=== PATIENT | male | born 1970 | race Caucasian/White ===

== ENCOUNTER 2016-04-24 07:32 | Outpatient (CLI) | payer BC ==
[~2016-04-24] VITALS: Ht 175.3 cm; Wt 95.5 kg
--- NOTE | ~2016-04-24 | HEMODYNAMI ---
PATIENT:SILVER CABRAL MEDICAL RECORD: [id number] : 68 LOCATION:DERIC ADMISSION DATE: 04/24/16 Generatedon:04/24/201610:52 Patient name: SILVER CABRAL Patient #: [id number] : 1970 Date of study: 04/24/2016 Page: Of Hemodynamic Procedure Report Patient Data Patient Demographics Procedure consent was obtained First Name: SILVER Gender: Male Last Name: MARIANNA : 1970 [facility] Initial: R Age: 45 year(s) Patient #: [id number] Race: Unknown SSN: [id number] Additional ID: [id number] Contact details [address]: [address] [place] [address] rd State: [place] City: [place] Zip code: [address] Admission Admission Data Admission Date: 04/24/2016 Admission Time: 7:32 Arrival Date: 04/24/2016 Arrival Time: 0:00 Admit Source: Other Height (in.): 69 BSA: 2.12 (m2) Height (cm.): 175.26 BMI: 31.45 (kg/m2) Weight (lbs.): 213 Weight (kg.): 96.62 Lab Results Lab Result Date: 04/24/2016 Lab Result Time: 0:00 Biochemistry Name Units Result Min Max BUN mg/dl 18 --(---*)-- 7 18 Creatinine mg/dl 1.1 --(--*-)-- 0.6 1.3 CBC Name Units Result Min Max Hemoglobin g/dl 15.1 --(-*--)-- 13.5 17.5 Procedure Procedure Types Cath Procedure Diagnostic Procedure C [facility] w/Coronaries Miscellaneous Procedures Moderate Sedation up to 15 minutes Procedure Description Procedure Date Procedure Date: 04/24/2016 Procedure Start Time: 10:36 Procedure End Time: 10:51 Procedure Staff Name Function Charly Jones MD Performing Physician Dylan Mccartney RT Director Data Management Pancho Stroud RN Nurse Colin Ordonez RT Scrub Oneida Cartwright RT Monitor Procedure Data Cath Procedure Fluoroscopy Diagnostic fluoroscopy Total fluoroscopy Time: 3.5 time: 3.5 min min Diagnostic fluoroscopy Total fluoroscopy dose: 186 dose: 186 mGy mGy Contrast Material Contrast Material Type Amount (ml) Isovue 300 55 Entry Location Entry Primary Successful Side Size Upsize Upsize Entry Closure Rodriguez ccessful Closure Location (Fr) 1 (Fr) 2 (Fr) Remarks Device Remarks Radial Right 6 Fr Mechanical TR band artery Short Compression Estimated blood loss: 10 ml Diagnostic catheters Device Type Used For End Catheter Placement Terumo 5Fr Jonn 110cm LV Angiography catheter Procedure Complications No complications Procedure Medications Medication Administration Route Dosage Oxygen NC 2 l/min Heparin Flush Bag added to field 2 bags (1000units/500ml NS) Fentanyl I.V. 100 mcg Versed I.V. 2 mg Radial Cocktail added to field 1 syringe (Verapomil 2mg/Nitro 400mcg/Heparin 1500units) Fentanyl I.V. 100 mcg Versed I.V. 2 mg Radial Cocktail I.A. 1 syringe (Verapomil 2mg/Nitro 400mcg/Heparin 1500units) 0.9% NaCl I.V. 100 ml/hr Hemodynamics Rest BSA: 2.12 (m2) HGB: 15.1 (g/dl) O2 Consumption: Estimated: 252.46 (ml/min) O2 Co nsumption indexed: Estimated:119.08 (ml/min/m) Heart Rate: 66 (bpm) Pressure Samples Time Site Value (mmHg) Purpose Heart Use Rate(bpm) 10:42 LV 73/10,15 Snapshot 48 10:42 LV 27/6,5 Snapshot 86 10:42 AO 101/78(87) Pullback 85 10:42 LV 112/17,22 Pullback 85 Gradients Valve Time Site 1 Site 2 Mean SEP/DFP Peak To Heart Use (mmHg) (sec/min) Peak Rate (mmHg) (bpm) Aortic 10:42 LV AO 9 18 11 85 112/17,22 101/78(87) Calculations Valve P-P Mean Valve Index Valve Source Name Gradient Area Flow (cm2) Aortic 11 9 11 9 Snapshots Pre Cath Intra NCS Post Cath Vital Signs Time Heart Resp SPO2 NIBP (mmHg) Rhythm Pain Sedation Rate (ipm) (%) Status Level (bpm) 10:28:39 65 14 98 135/85(114) NSR 0 (11) 10(A) , No pain 10:32:57 55 29 100 148/91(107) NSR 0 (11) 10(A) , No pain 10:37:15 89 18 85 125/91(121) NSR 0 (11) 9(A) , No pain 10:41:17 90 19 88 118/104(109) NSR 0 (11) 9(A) , No pain 10:45:20 65 18 94 121/108(118) NSR 0 (11) 9(A) , No pain 10:49:01 67 16 96 118/67(87) NSR 0 (11) 9(A) , No pain Medications Time Medication Route Dose Verified Delivered Reason Notes Effectiveness by by 10:32:56 Oxygen NC 2 l/min Pancho Deleon used for Maximus Stroud quill layer RN 10:33:25 Heparin Flush added 2 bags Pancho Deleon used for Bag to Maximus Stroud RN procedure (1000units/500ml field RN NS) 10:33:33 0.9% NaCl I.V. 100 Pancho Pancho Per ml/hr Maximus Stroud RN physician RN 10:33:34 Fentanyl I.V. 100 mcg Pancho Deleon for sedation Maximus Stroud RN RN 10:33:41 Versed I.V. 2 mg Pancho Pancho for sedation Maximus Stroud RN RN 10:36:47 Radial Cocktail added 1 Pancho Deleon used for (Verapomil to syringe Maximus Stroud RN procedure 2mg/Nitro field RN 400mcg/Heparin 1500units) 10:36:53 Fentanyl I.V. 100 mcg Pancho Deleon for sedation Maximus Stroud RN RN 10:36:59 Versed I.V. 2 mg Pancho Deleon for sedation Maximus Stroud RN RN 10:38:28 Radial Cocktail I.A. 1 Pancho Parks for (Verapomil syringe Maximus carvajal 2mg/Nitro RN 400mcg/Heparin 1500units) Procedure Log Time Note 10:00:07 Pancho Stroud RN sent for patient. Start room use. 10:11:10 Time tracking: Regular hours 10:11:13 Plan of Care:Hemodynamics will remain stable., Cardiac rhythm will remain stable., Comfort level will be maintained., Respiratory function will remain adequate., Patient/ family verbilizes understanding of procedure., Procedure tolerated without complication., Recovers from procedure without complications.. 10:17:33 Arrival Date: 04/24/2016 12:00:00 AM 10:17:35 Admit Source: Other 10:17:42 Patient Height : 175.26 inches 10:17:49 Patient Weight : 96.62 lbs 10:18:17 Procedure type changed to Cath procedure, Diagnostic procedure, LHC, LHC w/Coronaries, Miscellaneous Procedures, Moderate Sedation up to 15 minutes 10:18:21 Diagnostic Cath Status : Elective 10:18:43 Patient received from Outpatients to [facility] 3 Alert and oriented. Tansferred to table in Supine position. 10:18:45 Warm blankets applied, and emilio hugger turned on for patient comfort. 10:18:46 Correct patient and procedure confirmed by team. 10:18:48 Signed procedure consent form obtained from patient. 10:18:58 H&P Date Dictated: 04/16/2016 Within 30 days and on chart., H&P Addendum completed by physician on day of procedure. (MUST COMPLETE FOR ALL OUTPATIENTS). 10:19:02 Pre-procedure instructions explained to patient. 10:19:04 Family in waiting room. 10:19:06 Patient NPO since Midnight. 10:19:33 Is the patient allergic to Iodine/contrast media? No. 10:19:36 Is patient on blood thinner?Yes 10:19:39 ACC The patient was administered the following blood thiners within the last 24 hours: ACCPlavix 10:27:26 Vital chart was started 10:27:39 Patient diabetic? No. 10:27:45 Snore? Yes 10:27:46 Sleep apnea? No 10:27:47 Deviated septum? No 10:27:49 Opens mouth fully? Yes 10:27:50 Sticks out tongue? Yes 10:28:06 IV patent on arrival in left hand with 0.9% NaCl at KVO. 10:28:15 Lab results completed and on chart. 10:28:19 Right Radial & Right Groin area was prepped with chlora-prep and draped in sterile fashion 10::21 Alarms reviewed by R. N. 10:28:21 Sharps counted by scrub and verified by R.N. 10::27 ECG and BP/O2 sat monitors applied to patient. 10:: Baseline sample Acquired. 10:: Rhythm: sinus rhythm 10:: Full Disclosure recording started 10:: Physician paged 10::42 Physician arrived 10::43 --------ALL STOP TIME OUT------ 10::44 Final Timeout: patient, procedure, and site verified with staff and physician. All members of the team are in agreement. 10::46 Right Radial & Right Groin site verified by team. 10::50 Physical assessment completed. ASA score P 2 - A patient with mild systemic disease as per Charly Jones MD. 10:28:54 Sedation plan: IV Moderate Sedation Versed, Fentanyl 10:30:03 Use device set Radial Dx 10:30:05 Acist Syringe opened to sterile field. 10:30:05 Medline Cath Pack opened to sterile field. 10:30:06 Bag Decanter opened to sterile field. 10:30:06 Terumo 6Fr Slender Glidesheath opened to sterile field. 10:30:06 St Amaury 260cm J .035 wire opened to sterile field. 10:30:07 Acist Hand Control opened to sterile field. 10:30:07 Acist Manifold opened to sterile field. 10:30:09 Tegaderm 4 x 4 opened to sterile field. 10:31:09 Lab Result : BUN 18 mg/dl 10:31:09 Lab Result : Hemoglobin 15.1 g/dl 10:31:09 Lab Result : Creatinine 1.1 mg/dl 10:32:56 Oxygen 2 l/min NC was given by Pancho Stroud RN; used for procedure; 10:33:25 Heparin Flush Bag (1000units/500ml NS) 2 bags added to field was given by Pancho Stroud RN; used for procedure; 10:33:33 0.9% NaCl 100 ml/hr I.V. was given by Pancho Stroud RN; Per physician; :33:34 Fentanyl 100 mcg I.V. was given by Pancho Stroud RN; for sedation; ::41 Versed 2 mg I.V. was given by Pancho Stroud RN; for sedation; 10:36:23 Procedure started. 10:36:28 Local anesthetic to right radial artery with Lidocaine 2% by Charly Jones MD.INITIAL ACCESS ONLY 10:36:47 Radial Cocktail (Verapomil 2mg/Nitro 400mcg/Heparin 1500units) 1 syringe added to field was given by Pancho Stroud RN; used for procedure; 10:36:53 Fentanyl 100 mcg I.V. was given by Pancho Stroud RN; for sedation; 10:36:59 Versed 2 mg I.V. was given by Pancho Stroud RN; for sedation; 10:37:00 Zero performed for pressure channel P1 10:37:18 A 6 Fr Short sheath was inserted into the Right Radial artery 10:38:28 Radial Cocktail (Verapomil 2mg/Nitro 400mcg/Heparin 1500units) 1 syringe I.A. was given by Charly Jones MD; for vasodilation; 10:40:34 A Terumo 5Fr Jonn 110cm catheter was advanced over the wire and used for LV Angiography. 10:42:56 RCA angiography performed. 10:43:51 Catheter removed. 10:43:53 Medtronic Launcher 5Fr EBU 3.5 guide catheter opened to sterile field. 10:44:17 RCA angiography performed. 10:46:09 Catheter removed. 10:46:37 Terumo TR Band Large opened to sterile field. 10:48:53 Sheath removed intact; hemostasis achieved with Mechanical Compression to the Right Radial artery. 10:48:56 Procedure ended.(Physican Out) 10:49:11 Fluoroscopy time 03.50 minutes. 10:49:16 Flurop Dose total: 186 10:49:16 Fluoroscopy dose: 186 mGy 10:49:20 Contrast amount:Isovue 300 55ml. 10:49:22 Sharps counted by scrub and verified by R.N. 10:49:29 TR band inflated with 10cc of air. 10:49:33 Post Procedure Pulses reassessed and unchanged 10:49:43 Post procedure rhythm: unchanged. 10:49:46 Estimated blood loss: 10 ml 10:50:49 Post procedure instruction explained to patient.Patient verbalizes understanding. 10:51:00 Procedure and supply charges have been captured, reviewed, submitted and are correct. 10:51:26 Procedure Complication : No complications 10:51:29 Vital chart was stopped 10:51:34 See physician's report for complete and final results. 10:51:36 Report given to Outpatients. 10:51:40 Patient transfered to Outpatients with Stretcher. 10:51:42 Procedure ended. 10:51:42 Full Disclosure recording stopped 10:51:45 End room use (Document Last) Device Usage Item Name Manufacture Quantity Catalog Hospital Part Current Minimal Lot# / Number Charge Number Stock Stock Serial# Code Acist Acist 1 47252 242365 508599 455301 20 Syringe Medical [employer] Inc Medline Cardinal 1 [id number] 910204 73843 562798 5 Cath Pack Health Bag Microtek 1 [id number] 56096 243303 5 DecThe [employer] Terumo 6Fr Terumo 1 [id number] 147554 679742 743687 [address] St Amaury 1 462751 995795 409964 571219 30 260cm J .035 wire Acist Hand Acist 1 89357 421616 337810 018778 5 Control Medical Systems Inc Acist Acist 1 92664 054267 629657 319193 5 Manifold Medical Systems Inc Tegaderm 4 3M 1 [id number] 974125 843625 446440 5 x 4 Terumo 5Fr Terumo 1 37-8281 241614 481106 801468 5 Jonn 110cm catheter Medtronic Medtronic 1 [id number] 808564 803647 495206 1 Launcher 5Fr EBU 3.5 guide catheter Terumo TR Terumo 1 [id number] 803067 492213 40 Band Large Signature Audit [place] Time Signature Unsigned Intra-Procedure 04/24/2016 Oneida Cartwright 10:52:15 AM RT(R) Signatures Monitor : Oneida Cartwright Signature : RT Date : Time : [id number] [place] [address]
[2016-04-24] MEDS ORDERED: LIPITOR40 MG PO (07:56)
[2016-04-24] MEDS ORDERED: NIASPAN1000 MG PO (07:57)
[2016-04-24] MEDS ORDERED: ULTRAM50 MG PO (07:57)
[2016-04-24] MEDS ORDERED: BAYER CHEWABLE81 MG PO (07:57)
[2016-04-24] MEDS ORDERED: PLAVIX75 MG PO (07:58)
[2016-04-24 08:06] VITALS: BP 144/81; Ht 175.3 cm; Wt 95.5 kg
[2016-04-24 08:12] LABS: BASOPHILS 0.5 % (0.0-2.0); EOSINOPHILS 2.6 % (0-7); HEMATOCRIT 42.2 % (42.0-54.0); HEMOGLOBIN 15.1 g/dL (13.5-17.5); IMMATURE GRANULOCYTES 0.2 % (0-5); LYMPHOCYTES 41.4 % (15-50); MCH 31.2 pg (26.0-34.0); MCHC 35.8 g/dL (31.0-37.0); MCV 87.2 fL (80.0-100.0); MONOCYTES 11.1 % (2-11); NEUTROPHILS 44.2 % (40-80); PLATELET COUNT 181 10x3/uL (130-400); RBC 4.84 10x6/uL (4.20-6.10); RDW 11.9 % (11.5-14.5); WBC 6.6 10x3/uL (4.8-10.8)
[2016-04-24 08:21] LABS: CALC OSMOLALITY 277 mosm/kg (275-300); CALCIUM 8.9 mg/dL (8.5-10.1); CHLORIDE - SERUM 103 mmol/L (98-107); CREATININE - SERUM 1.1 mg/dL (0.6-1.3); GLUCOSE 105 mg/dL (74-106); SODIUM 138 mmol/L (136-145); UREA NITROGEN 18 mg/dL (7-18); eGFR NON AFRICAN AMERICAN 76 mL/min (90-120)
--- NOTE | 2016-04-24 12:04 | NUR ---
1115 RESTING WITH EYES CLOSED. VITALS ALL WNL. R WRIST TR BAND C/D/I WITH NO HEMATOMA OR BLEEDING. SIPPING SODA WITH NO C/O NAUSEA. PULSES PALP X 4. WILL CONTINUE TO MONITOR CLOSELY. FAMILY AT BEDSIDE. 1145 CONTINUES TO REST WITH EYES CLOSED, ROOM AIR WITH NO DISTRESS. NSR W NO C/O CHEST PAIN. PULSES PALP X4. R WRIST TR BAND REMAINS C/D/I WITH NO HEMATOMA OR BLEEDING.
--- NOTE | 2016-04-24 12:28 | NUR ---
VSS WITH CHEST PAIN DENIED ALERT AND ORIENTED TALKING TO FAMILY AT BEDSIDE. 6 FR EXOSEAL R/GROIN CDI NO BLEEDING NO HEMATOMA NOTED.
--- NOTE | 2016-04-24 12:52 | NUR ---
PIV REMOVED FROM L HAND WITH BANDAID APPLIED. 3CC AIR REMOVED FROM R WRIST TR BAND. UP TO BEDSIDE TO DRESS WITH ASSIST FROM GIRLFRIEND. WILL MONITOR WRIST CLOSELY FOR BLEEDING.
--- NOTE | 2016-04-24 13:04 | NUR ---
VERBAL AND WRITTEN DISCHARGE GONE OVER WITH PATIENT AND BOTH VERBALIZED UNDERSTANDING. TR BAND REMOVED WITH DRESSING APPLIED NO BLEEDING NO HEMATOMA NOTED. CHEST PAIN IS DENIED TRANSPORTED VIA WC TO PARKING FOR TO DRIVE HOME
--- NOTE | 2016-06-02 14:37 | OP ---
PATIENT NAME: SILVER CABRAL MEDICAL RECORD: [id number] :68 LOCATION:D.CAT ADMISSION DATE: SURGEON: KAYDEN COHN MD DATE OF OPERATION: 04/24/2016 PROCEDURES: 1. Left heart catheterization. 2. Selective coronary angiography. 3. Left ventriculogram. INDICATIONS: Angina. PROCEDURE IN DETAIL: After informed consent was obtained and after detailed explanation of risks, benefits as well as alternative therapies, the patient elected to proceed with angiogram and heart catheterization. The right radial area was prepped and draped in normal sterile fashion. The right radial artery was cannulated via modified Seldinger technique with placement of 5-[place] sheath. All catheters exchanged through this sheath. FINDINGS: Left ventriculogram was performed in standard 30-degree COHEN view, reveals good cardiac wall motion throughout all segments. Overall ejection fraction is 60%. SELECTIVE CORONARY ANGIOGRAPHY: Left main, left anterior descending, left circumflex, and right coronary artery are all smooth-walled vessels with no angiographic evidence of coronary artery disease. OVERALL IMPRESSION: 1. No angiographic evidence of coronary artery disease. 2. Normal left heart pressures. 3. Normal left ventricular systolic function. Chest pain is noncardiac in etiology. No further cardiac workup needs to be ascertained. TRANSINT:[id number] Voice Confirmation ID: [id number] DOCUMENT ID: [id number] KAYDEN COHN MD at 1437 CC: [id number] DICTATION DATE: 05/18/16 1205 HOUSING CASE MANAGER: 05/18/16 2144 DEP CLI 04/24/16 [place] [id number]
== END 2016-04-24 13:07 | disposition home or self-care (01) ==
LOC: D.CATH 07:32
PROVIDERS: Internal Medicine Interventional Cardiology
DX: R07.89 Other chest pain (principal)

== ENCOUNTER 2017-10-26 12:19 | Emergency (ER) | payer OTHER ==
[~2017-10-26] VITALS: Ht 175.3 cm; Wt 95.5 kg
[~2017-10-26 12:19] MED LIST: BAYER CHEWABLE81 MG PO; LIPITOR40 MG PO; NIASPAN1000 MG PO; PLAVIX75 MG PO; ULTRAM50 MG PO
[2017-10-26 12:24] VITALS: Ht 175.3 cm; Wt 95.5 kg
[2017-10-26] MEDS ORDERED: VITAMIN D31000 UNIT PO (12:25)
[2017-10-26] MEDS ORDERED: VITAMIN B COMPL1 TAB PO (12:25)
[2017-10-26] MEDS ORDERED: FISH OIL 1,2001 CAP PO (12:25)
[2017-10-26] MEDS ORDERED: ATARAX 25 MG TA25 MG PO (12:26)
[2017-10-26] MEDS ORDERED: CYMBALTA30 MG PO (12:27)
[2017-10-26 13:00] LABS: ALBUMIN 3.6 g/dL (3.4-5.0); ALKALINE PHOSPHATASE 73 U/L (46-116); ALT (SGPT) 30 U/L (10-68); BILIRUBIN - TOTAL 0.42 mg/dL (0.2-1.3); CALC OSMOLALITY 275 mosm/kg (275-300); CALCIUM 8.9 mg/dL (8.5-10.1); CARBON DIOXIDE 28.5 mmol/L (21.0-32.0); CHLORIDE - SERUM 104 mmol/L (98-107); CREATININE - SERUM 1.1 mg/dL (0.6-1.3); GLUCOSE 106 mg/dL (74-106); POTASSIUM - SERUM 4.2 mmol/L (3.5-5.1); PROTEIN - SERUM 7.4 g/dL (6.4-8.2); SODIUM 137 mmol/L (136-145); UREA NITROGEN 17 mg/dL (7-18); eGFR NON AFRICAN AMERICAN 76 mL/min (90-120)
[2017-10-26 13:13] LABS: CKMB 1.2 U/L (0.0-3.6); CREATINE KINASE 106 UL (21-232); TROPONIN-I < 0.017 ng/mL (0.000-0.060)
[2017-10-26 13:17] LABS: BASOPHILS 0.6 % (0-2); EOSINOPHILS 0.7 % (0-7); HEMATOCRIT 42.9 % (42.0-54.0); HEMOGLOBIN 15.2 g/dL (13.5-17.5); IMMATURE GRANULOCYTES 0.4 % (0-5); LYMPHOCYTES 33.3 % (15-50); MCHC 35.4 g/dL (31.0-37.0); MCV 87.4 fL (80.0-100.0); MEAN PLATELET VOLUME 10.5 fL (7.4-10.4); MONOCYTES 8.6 % (2-11); NEUTROPHILS 56.4 % (40-80); PLATELET COUNT 208 10x3/uL (130-400); RBC 4.91 10x6/uL (4.20-6.10); RDW 12.3 % (11.5-14.5); WBC 8.1 10x3/uL (4.8-10.8)
[2017-10-26 13:34] LABS: INR 0.9 (0.85-1.17); PROTIME 11.8 SECONDS (11.6-15.0)
[2017-10-26 13:35] LABS: APTT 35.6 SECONDS (22.8-39.4)
[2017-10-26 14:24] VITALS: BP 129/84
== END 2017-10-26 14:24 | disposition home or self-care (01) ==
LOC: D.ER 12:19
PROVIDERS: Emergency Medicine
DX: R07.9 Chest pain, unspecified (principal); F41.9 Anxiety disorder, unspecified